=== PATIENT | female | born 1970 | race Caucasian/White ===

== ENCOUNTER 2023-02-15 16:10 | Emergency (ER) | payer MEDICARE, MEDICAID, SELFPAY ==
[2023-02-15] VITALS (14 sets, daily range): BP systolic 97–124; BP diastolic 50–85; PULSE 59–81; RESP 13–21; TEMP 36.4–36.6; O2SAT 91–98
--- NOTE | 2023-02-15 16:06 | ED.GENADUL_ITS ---
Discharge Plan Disposition Patient Disposition: Home Condition: Improving Discharge Details Clinical Impression: Accidental overdose, UTI (urinary tract infection), Pneumonia Primary Care Provider: Franchesca Summers ED Provider: Cristin Weston Home Meds and New Rx's Prescriptions: Continued citalopram 20 mg Tablet 20 mg PO DAILY dicyclomine 20 mg Tablet PO TID pregabalin [Lyrica] 150 mg Capsule 150 mg PO BID Discharge Instructions Instructions: Urinary Tract Infection in Women (ED), Pneumonia (ED) Additional Instructions: You were given multiple doses of the medication Narcan to reverse the effects of the methadone. Risks of opiate overdose include respiratory depression and d eath. Do not take medications that are not prescribed for you. Your chest x-ray showed evidence of a possible left-sided pneumonia. Your urine sample is also consistent with a urinary tract infection. Drink plenty of fluids and get plenty of rest. A prescription for the antibiotic Augmentin has been sent electronically to your pharmacy to take as directed until finished. Follow-up with your primary care doctor in 1 week. Return to the emergency department with any worsening or new concerning symptoms. Discharge Data Discharge Date/Time-TO BE ENTERED AT DEPARTURE: 02/15/23 21:09 Discharge Physician: Cristin Weston Medical Decision Making 1600 -- 52-year-old female with a history of peripheral neuropathy initially per EMS as an overdose and then reported as a CPR in progress. Upon EMS arrival, patient was noted to be somnolent with pinpoint pupils and was given a total of 6 mg of Narcan in which she became more alert and able to answer some questions. Vital signs reassuring per EMS. Oxygen saturation 96% on room air. Patient has eyes closed on arrival. Oxygen saturation 97% on 2 L. Vitals reassuring. She has a normal gag reflex and is verbally responsive to sternal rub. She appears uncomfortable when firmly pressing the substernal area and does admit to pain in this area since arrival to the ED. Suspect this is from likely compressions and sternal rub per EMS. Her lungs are clear throughout. Pupils are equal and reactive. She has no obvious focal deficits. She does report hip pain which is chronic and there is no obvious evidence of acute trauma. We will continue to monitor. Will refer for screening labs, urinalysis, UDS, CT head, chest x-ray and pelvis x-ray. 1744 --Labs and imaging reviewed. White blood cell count 16.5. Glucose 221 but with normal bicarb and anion gap. ABG notes a pH of 7.25, PCO2 50, PO2 72 while on 1 L nasal cannula. Urinalysis consistent with UTI. UDS positive for THC. CT head negative. Pelvis x-ray negative. Chest x-ray notes a questionable left lung base pneumonia. Patient reassessed and she is now opening her eyes, conversing more. She is requesting something to drink and was able to drink tanner macario. She is still complaining of the substernal chest pain which I suspect is from compressions and there is no evidence of trauma or rash on exam and she has significant tenderness to palpation of her sternum with even light palpation. She is a smoker and does endorse recent worsening of her chronic cough. She also admits to recent urinary frequency. There is an interaction of Levaquin with her citalopram for risk of QT prolongation so we will treat UTI and possible pneumonia with Augmentin. We will give a dose of Toradol for her chest pain. 1814 --patient noted to be more sleepy with respiratory rate around 8. She was able to be aroused verbally and speak and answer questions appropriately. She has pinpoint pupils. We will give an additional 1 mg of Narcan and continue to observe. BP 99/59, will give another 1 liter bolus. 2044 --patient was able to ambulate, eat and drink and feels much better would like to go home. She was given 1 dose of Augmentin here and a prescription sent electronically to her pharmacy. She was advised that she should not take medications, especially opiates, that are not prescribed to her. Advised to follow up with the primary care doctor for re-evaluation. Usual and customary return precautions given prior to discharge. Medical Records Medical records reviewed: Yes I reviewed the patient's medical records. Imaging Data Radiologic Study: Radiologist's impression: CT Head Without Contrast Exam date and time: 02/15/2023 5:01 PM Age: 52 years old Clinical indication: Injury or trauma; Fall; Blunt trauma (contusions or hematomas) TECHNIQUE: Imaging protocol: Computed tomography of the head without contrast. COMPARISON: No relevant prior studies available. FINDINGS: Brain: Normal. No hemorrhage. Unremarkable white matter. No mass effect. Cerebral ventricles: No ventriculomegaly. Paranasal sinuses: Opacities in the sphenoid sinuses may represent sinusitis Mastoid air cells: Visualized mastoid air cells are well aerated. Bones/joints: Unremarkable. No acute fracture. Soft tissues: Unremarkable. IMPRESSION: No acute intracranial hemorrhage XR Chest Exam date and time: 02/15/2023 5:08 PM Age: 52 years old Clinical indication: Other: Overdose TECHNIQUE: Imaging protocol: Radiologic exam of the chest. Views: 2 views. COMPARISON: No relevant prior studies available. FINDINGS: Lungs: Opacities in the left base may represent atelectasis or pneumonia.. Pleural spaces: Unremarkable. No pleural effusion. No pneumothorax. Heart/Mediastinum: Unremarkable. No cardiomegaly. Bones/joints: Unremarkable. IMPRESSION: Opacities in the left base may represent atelectasis or pneumonia. XR Pelvis Exam date and time: 02/15/2023 5:13 PM Age: 52 years old Clinical indication: Hip pain; Bilateral TECHNIQUE: Imaging protocol: Radiologic exam of the pelvis. Views: 1 or 2 view. COMPARISON: No relevant prior studies available. FINDINGS: Bones/joints: Unremarkable. No acute fracture. Soft tissues: Unremarkable. IMPRESSION: No acute findings. Lab Data Lab results reviewed: Yes I reviewed the patient's lab results. Labs: 02/15/23 16:41 Urine - Reflex from Ua Urine Culture - Pending Laboratory Tests Range/Units 02/15/23 02/15/23 02/15/23 16:26 16:41 16:41 WBC (4.4-10.8) 10^3/uL 16.85 H RBC (3.93-5.22) 10^6/uL 4.75 Hgb (11.2-15.7) g/dL 14.4 Hct (36.0-46.0) % 44.7 MCV (80-95) fL 94 MCH (27.0-33.0) pg 30.3 MCHC (32.0-36.0) % 32.2 RDW (11.7-14.6) % 13.2 Plt Count (130-400) 10^3/uL 238 MPV (8.0-11.0) fL 10.3 Immature Gran % 1.9 Neutrophils % 73.9 Lymphocytes % 18.8 Monocytes % 4.4 Eosinophils % 0.4 Basophils % 0.6 Nucleated RBC % (0.0-0.3) % 0.0 Absolute Neutrophils (1.2-6.7) 10^3/uL 12.45 H Absolute Lymphocytes (1.2-3.4) 10^3/uL 3.17 Absolute Monocytes (0.1-0.8) 10^3/uL 0.74 Absolute Eosinophils (0.0-0.7) 10^3/uL 0.07 Absolute Basophils (0.0-0.2) 10^3/uL 0.10 ABG Sample Site Left Radial ABG pH (7.35-7.45) 7.25 L ABG pCO2 (35-45) mmHg 50 H ABG pO2 (80-105) mmHg 72 L ABG HCO3 (22-26) mmol/L 22 ABG Total CO2 (23-27) mmol/L 20 L ABG O2 Saturation (95-98) % 94 L ABG Base Excess (-2-3) mmol/L -5 L Oxygen Liter Flow L 1 Sodium (136-145) mmol/L 138 Potassium (3.5-5.1) mmol/L 4.3 Chloride (98-107) mmol/L 104 Carbon Dioxide (21.0-32.0) mmol/L 26.8 Anion Gap (3-11) mmol/L 7.2 BUN (7-18) mg/dL 12 Creatinine (0.55-1.02) mg/dL 1.1 H Est GFR (CKD-EPI 2020) (mL/min/1.73m2) 59.71 Glucose (74-106) mg/dL 221 H Calcium (8.5-10.1) mg/dL 8.6 Magnesium (1.8-2.4) mg/dL 1.9 Total Bilirubin (0.2-1.0) mg/dL 0.3 AST (15-37) U/L 32 ALT (14-59) U/L 39 Alkaline Phosphatase (46-116) U/L 137 H Troponin I (<or=60) ng/L < 50 Total Protein (6.4-8.2) g/dL 7.7 Albumin (3.4-5.0) g/dL 3.5 Lipase (16-77) U/L 60 Urine Color (Yellow) Urine Clarity (Clear) Urine pH (5-8) Ur Specific [place] (1.005-1.025) Urine Protein (Negative) mg/dL Urine Ketones (Negative) mg/dL Urine Blood (Negative) Urine Nitrite (Negative) Urine Bilirubin (Negative) Urine Urobilinogen (Up to 0.2) mg/dL Ur Leukocyte Esterase (Negative) Urine RBC (0-2) HPF Urine WBC (0-5) HPF Ur Epithelial Cells (Negative) HPF Urine Crystals (Negative) HPF Urine Bacteria (Negative) HPF Urine Casts (Negative) LPF Urine Mucus (Negative) Urine Other (Negative) Ur Culture Indicated? Urine Glucose (Negative) mg/dL Urine Opiates Screen (Negative) Ur Barbiturates Screen (Negative) Ur Tricyclics Screen (Negative) Ur Amphetamines Screen (Negative) U Benzodiazepines Scrn (Negative) Urine Cocaine Screen (Negative) Ur THC Screen (Negative) Range/Units 02/15/23 02/15/23 16:41 16:41 WBC (4.4-10.8) 10^3/uL RBC (3.93-5.22) 10^6/uL Hgb (11.2-15.7) g/dL Hct (36.0-46.0) % MCV (80-95) fL MCH (27.0-33.0) pg MCHC (32.0-36.0) % RDW (11.7-14.6) % Plt Count (130-400) 10^3/uL MPV (8.0-11.0) fL Immature Gran % Neutrophils % Lymphocytes % Monocytes % Eosinophils % Basophils % Nucleated RBC % (0.0-0.3) % Absolute Neutrophils (1.2-6.7) 10^3/uL Absolute Lymphocytes (1.2-3.4) 10^3/uL Absolute Monocytes (0.1-0.8) 10^3/uL Absolute Eosinophils (0.0-0.7) 10^3/uL Absolute Basophils (0.0-0.2) 10^3/uL ABG Sample Site ABG pH (7.35-7.45) ABG pCO2 (35-45) mmHg ABG pO2 (80-105) mmHg ABG HCO3 (22-26) mmol/L ABG Total CO2 (23-27) mmol/L ABG O2 Saturation (95-98) % ABG Base Excess (-2-3) mmol/L Oxygen Liter Flow L Sodium (136-145) mmol/L Potassium (3.5-5.1) mmol/L Chloride (98-107) mmol/L Carbon Dioxide (21.0-32.0) mmol/L Anion Gap (3-11) mmol/L BUN (7-18) mg/dL Creatinine (0.55-1.02) mg/dL Est GFR (CKD-EPI 2020) (mL/min/1.73m2) Glucose (74-106) mg/dL Calcium (8.5-10.1) mg/dL Magnesium (1.8-2.4) mg/dL Total Bilirubin (0.2-1.0) mg/dL AST (15-37) U/L ALT (14-59) U/L Alkaline Phosphatase (46-116) U/L Troponin I (<or=60) ng/L Total Protein (6.4-8.2) g/dL Albumin (3.4-5.0) g/dL Lipase (16-77) U/L Urine Color (Yellow) Yellow Urine Clarity (Clear) Sl Cloudy Urine pH (5-8) 5.5 Ur Specific [place] (1.005-1.025) >= 1.030 H Urine Protein (Negative) mg/dL 100 H Urine Ketones (Negative) mg/dL Negative Urine Blood (Negative) Trace-intact H Urine Nitrite (Negative) Positive H Urine Bilirubin (Negative) Negative Urine Urobilinogen (Up to 0.2) mg/dL 0.2 Ur Leukocyte Esterase (Negative) Trace H Urine RBC (0-2) HPF 0-2 Urine WBC (0-5) HPF 20-50 H Ur Epithelial Cells (Negative) HPF Few Urine Crystals (Negative) HPF Negative Urine Bacteria (Negative) HPF Many Urine Casts (Negative) LPF 3-5 Hyaline Urine Mucus (Negative) Negative Urine Other (Negative) Rare Transitional Ur Culture Indicated? Yes Urine Glucose (Negative) mg/dL Negative Urine Opiates Screen (Negative) Negative Ur Barbiturates Screen (Negative) Negative Ur Tricyclics Screen (Negative) Negative Ur Amphetamines Screen (Negative) Negative U Benzodiazepines Scrn (Negative) Negative Urine Cocaine Screen (Negative) Negative Ur THC Screen (Negative) Positive A ECG Data Attestation: I personally reviewed and interpreted this ECG (s) as follows: Interpretation: Rate of 64, sinus, normal axis, artifact obscuring baseline, normal PA interval, somewhat prolonged QTc at 495. No acute ischemic findings. HPI General Mode of arrival: EMS . Date/Time Provider Initiated Documentation: 02/15/23 16:25 . Limitations to Documentation: no limitations . Information obtained by: patient and EMS . HPI Narrative: Patient is a 52-year-old female with a history of chronic abdominal pain, peripheral neuropathy, tobacco dependence presents from home initially as an overdose and reported CPR in progress. EMS reports that they were called to the scene of a patient who had sustained an overdose after taking someone else's methadone. They called back shortly after reporting that CPR was in progress. They state that boyfriend noted that patient had stopped breathing and he had done compressions for 20 minutes. Upon their arrival, patient was noted to be somnolent and was given a total of 6 mg Narcan with 2 mg intranasal and 4 mg IV. They state that patient initially was noted to have pinpoint pupils which then became dilated and she became more alert after Narcan. Patient arrives to the ED able to answer questions but drowsy. Patient states she had taken one of her friends methadone for pain . She is now reporting substernal chest pain on arrival to the ED. She denies any falls, difficulty breathing, new abdominal pain or new extremity pain or injury. She states she smokes marijuana but denies any other drug use today. She denies any recent alcohol use. Related Data Home Medications Medication Instructions Recorded Confirmed citalopram 20 mg tablet 20 mg PO DAILY 02/15/23 02/15/23 dicyclomine 20 mg tablet mg PO TID 02/15/23 pregabalin 150 mg capsule (Lyrica) 150 mg PO BID 02/15/23 02/15/23 Allergies Allergy/AdvReac Type Severity Reaction Status Date / Time No Known Allergies Allergy Unverified 02/15/23 16:25 General Stated Complaint: OD/Poison Review of Systems All systems reviewed & are unremarkable except as noted in HPI and below Constitutional Constitutional: Reports as per HPI, Denies chills and Denies fever(s) Eyes Eyes: Denies blurry vision ENT Ears, Nose, Mouth, and Throat: Denies dizziness, Denies sore throat and Denies throat swelling Cardiovascular Cardiovascular: Reports chest pain (started after she got to the hospital) and Denies dyspnea Respiratory Respiratory: Denies cough and Denies dyspnea Gastrointestinal Gastrointestinal: Denies abdominal pain, Denies diarrhea and Denies vomiting Genitourinary Genitourinary: Denies hematuria and Denies dysuria Musculoskeletal Musculoskeletal: Denies back pain and Denies numbness Integumentary/Breasts Skin/Breast: Denies lesions and Denies rash Neurologic Neurologic: Denies dizziness, Denies localized weakness and Denies numbness Allergic/Immunologic Allergic/Immunologic: Denies throat swelling PFSH All Active Problems (Updated 02/15/23 @ 21:00 by Cristin Weston DO) Accidental overdose (Acute) UTI (urinary tract infection) (Acute) Pneumonia (Acute) Medical History (Updated 02/15/23 @ 21:00 by Cristin Weston DO) Chronic abdominal pain Peripheral neuropathy Post-menopausal Surgical History (Updated 02/15/23 @ 16:39 by Cristin Weston DO) H/O section H/O total cystectomy Left elbow History of appendectomy Social History Smoking/Tobacco Use Status: Current every day Tobacco Type: cigarettes Smoking risk assessment performed?: Yes Alcohol Intake: never Drug use: Daily Substance use type: marijuana Do you feel safe at home: Yes Do you feel safe in your relationship?: Yes Exam Const General: no acute distress and other (drowsy but arousable to sternal rub) HENMT Head: normal to inspection Ears: hearing grossly normal bilaterally Face and sinus: normal facial exam Throat: other (normal gag reflex) Eyes General: appearance normal, both eyes and all related structures Pupils: PERRL Neck Neck: normal visual inspection and No submandibular swelling Chest Chest: normal inspection of the chest and no tenderness Resp Effort & Inspection: normal respiratory effort Auscultation: clear to auscultation bilaterally Cardio Rate: regular rate Rhythm: regular rhythm GI Inspection: normal to inspection Palpation: soft, not firm, not rigid and nontender Auscultation: hypoactive bowel sounds Back/Spine/Pelvis Thoracic/Lumbar Spine: thoracic and lumbar spine normal to inspection Skin General skin exam: no rashes or lesions noted Neuro General: moves all extremities, no focal motor deficits and other (drowsy but arousable to sternal rub) Extrem General: normal to inspection and no edema Psych Appearance: grossly normal
--- NOTE | 2023-02-15 16:15 | DI.RAD_ITS ---
Exam(s) XR PELVIS AP EXAM: XR PELVIS AP CLINICAL HISTORY: b/l hip pain, r/o fx. TECHNIQUE: 2D digital imaging was performed.One images were obtained. COMPARISON: No exams were available for comparison FINDINGS: BONES: No acute fracture is present. No bony destructive lesion is seen. JOINTS: No dislocation present. No joint space narrowing is present. SOFT TISSUE: Normal. IMPRESSION: Unremarkable radiographs of the pelvis. DATA REPOSITORY: RADIATION DOSE DELIVERED:
--- NOTE | 2023-02-15 16:15 | DI.CT_ITS ---
Exam(s) CT HEAD WO EXAM: CT HEAD WO CLINICAL HISTORY: overdose, h/o confusion, r/o cva. TECHNIQUE: Imaging Protocol: Axial computed tomography images with coronal and sagittal reformatted images were created and reviewed COMPARISON: No exams were available for comparison FINDINGS: Ventricles and Extra axial spaces: Normal in size and morphology for the patient's age. Hemorrhage: None. Cerebral parenchyma: Normal. Midline shift: None. Brainstem/Cerebellum: Normal. Calvarium: Normal. Visualized Paranasal sinuses/Mastoids: There is mild mucosal thickening in the sphenoid sinuses. The remaining visualized paranasal sinuses and mastoid air cells are clear. Soft Tissues: Unremarkable. IMPRESSION: No acute intracranial process. RADIATION DOSE DELIVERED: 729.71mGy.cm Total DLP DATA REPOSITORY: All CT scans at this facility are submitted to the National Radiology Data Registry (NRDR) Dose Index Registry (DIR) with the [employer] ([employer]). RADIATION OPTIMIZATION: All CT scans at this facility use at least one of these dose optimization te chniques: automated exposure control; mA and/or kV adjustment per patient size (includes targeted exa ms where dose is matched to clinical indication); or iterative reconstruction.
--- NOTE | 2023-02-15 16:26 | DI.RAD_ITS ---
Exam(s) XR CHEST 2V PA LATERAL EXAM: XR CHEST 2V PA LATERAL CLINICAL HISTORY: overdose, r/o acute disease TECHNIQUE: 2D digital imaging was performed of the chest. Two images were obtained. PA and lateral views were obtained. COMPARISON: No exams were available for comparison FINDINGS: MEDIASTINUM: Normal. HEART: Normal. PULMONARY VASCULATURE: Normal. LUNGS: Linear infiltrates in the left lung base. PLEURAL SPACE: No pleural effusion or pneumothorax. BONE:Within normal limits for the patient's age. Old healed left rib fractures. OTHER FINDINGS:Normal. IMPRESSION: Linear opacities in the left lung base which may represent atelectasis or pneumonia. DATA REPOSITORY: RADIATION DOSE DELIVERED:
[2023-02-15] MEDS: Normal Saline 1,000 ML 1000 ML IV ×2 (16:30→18:27)
--- NOTE | 2023-02-15 16:30 | RT.EKG_ITS ---
APPROVED REPORT Exam: Resting ECG Reason for Exam: overdose Patient Location: E HR:64 bpm ECG Measurements Heart Rate 64 AXIS DC 167 P 80 QRSd 110 QRS 57 QT 478 T 57 QTc 495 Conclusion Sinus rhythm...normal P axis, V-rate 60- 99. Artifact. Sinus. Normal axis. No STEMI. I have reviewed and interpreted ECG and agree with software generated interpretation.
[2023-02-15 16:47] LABS: BE -5 mmol/L (-2-3); HCO3 22 mmol/L (22-26); pCO2 50 mmHg (35-45); pH 7.25 (7.35-7.45); pO2 72 mmHg (80-105); sO2 94 % (95-98); tCO2 20 mmol/L (23-27)
[2023-02-15 16:48] LABS: Abs Immature Grans 0.32 10^3/uL (0.0-0.06); Absolute Eosinophil Count 0.07 10^3/uL (0.0-0.7); Absolute Lymphocyte Count 3.17 10^3/uL (1.2-3.4); Absolute Monocyte Count 0.74 10^3/uL (0.1-0.8); Absolute Neutrophil Count 12.45 10^3/uL (1.2-6.7); Basophils % 0.6; Eosinophils % 0.4; HCT 44.7 % (36.0-46.0); HGB 14.4 g/dL (11.2-15.7); Immature Grans % 1.9; Lymphocytes % 18.8; MCH 30.3 pg (27.0-33.0); MCHC 32.2 % (32.0-36.0); MCV 94 fL (80-95); MPV 10.3 fL (8.0-11.0); Monocytes % 4.4; Neutrophils % 73.9; Platelet Count 238 10^3/uL (130-400); RBC 4.75 10^6/uL (3.93-5.22); RDW 13.2 % (11.7-14.6); RDW-SD 46.2 fL; WBC 16.85 10^3/uL (4.4-10.8)
[2023-02-15 16:49] LABS: FIO2L 1 L; Site Left Radial
[2023-02-15 16:59] LABS: Bilirubin Negative (Negative); Blood Trace-intact (Negative); Clarity Sl Cloudy (Clear); Glucose Negative (Negative); Ketones Negative (Negative); Leukocyte Esterase Trace (Negative); Nitrite Positive (Negative); Specific Gravity >= 1.030 (1.005-1.025); Urobilinogen 0.2 mg/dL (Up to 0.2); pH 5.5 (5-8)
[2023-02-15 17:08] LABS: Epithelial Cells Few HPF (Negative); RBC 0-2 HPF (0-2); WBC 20-50 HPF (0-5)
[2023-02-15 17:09] LABS: Bacteria Many HPF (Negative); C & S Indicated? Yes; Casts 3-5 Hyaline LPF (Negative); Crystals Negative HPF (Negative); Mucus Negative (Negative); Other Cells Rare Transitional (Negative)
[2023-02-15 17:16] LABS: *AMPHETAMINES SCREEN URINE Negative (Negative); *BENZODIAZEPINES SCREEN URINE Negative (Negative); Cannabinoids THC Positive (Negative); Cocaine Screen,Urine Negative (Negative)
[2023-02-15 17:17] LABS: *BARBITURATES SCREEN URINE Negative (Negative); OPIATES URINE SCREEN Negative (Negative); Tricyclic Antidepressants Negative (Negative)
[2023-02-15 17:28] LABS: ALT 39 U/L (14-59); AST 32 U/L (15-37); Albumin 3.5 g/dL (3.4-5.0); Alkaline Phosphatase 137 U/L (46-116); Anion Gap 7.2 mmol/L (3-11); BUN 12 mg/dL (7-18); CO2 26.8 mmol/L (21.0-32.0); CREATININE 1.1 mg/dL (0.55-1.02); Chloride 104 mmol/L (98-107); Estimated GFR 59.71 (mL/min/1.73m2); Glucose 221 mg/dL (74-106); Lipase 60 U/L (16-77); Magnesium 1.9 mg/dL (1.8-2.4); Potassium 4.3 mmol/L (3.5-5.1); Sodium 138 mmol/L (136-145); Total Protein 7.7 g/dL (6.4-8.2); Troponin I < 50 ng/L (<or=60)
--- NOTE | 2023-02-15 17:39 | DI.VRAD_ITS ---
PROCEDURE INFORMATION: Exam: XR Chest Exam date and time: 02/15/2023 5:08 PM Age: 52 years old Clinical indication: Other: Overdose TECHNIQUE: Imaging protocol: Radiologic exam of the chest. Views: 2 views. COMPARISON: No relevant prior studies available. FINDINGS: Lungs: Opacities in the left base may represent atelectasis or pneumonia.. Pleural spaces: Unremarkable. No pleural effusion. No pneumothorax. Heart/Mediastinum: Unremarkable. No cardiomegaly. Bones/joints: Unremarkable. IMPRESSION: Opacities in the left base may represent atelectasis or pneumonia.. Dictated and Authenticated by: Hakan Nova MD. Ordering:CEM Amaral MD
--- NOTE | 2023-02-15 17:39 | DI.VRAD_ITS ---
PROCEDURE INFORMATION: Exam: XR Pelvis Exam date and time: 02/15/2023 5:13 PM Age: 52 years old Clinical indication: Hip pain; Bilateral TECHNIQUE: Imaging protocol: Radiologic exam of the pelvis. Views: 1 or 2 view. COMPARISON: No relevant prior studies available. FINDINGS: Bones/joints: Unremarkable. No acute fracture. Soft tissues: Unremarkable. IMPRESSION: No acute findings. Dictated and Authenticated by: Hakan Nova MD. Ordering:CEM Amaral MD
--- NOTE | 2023-02-15 17:39 | DI.VRAD_ITS ---
PROCEDURE INFORMATION: Exam: CT Head Without Contrast Exam date and time: 02/15/2023 5:01 PM Age: 52 years old Clinical indication: Injury or trauma; Fall; Blunt trauma (contusions or hematomas) TECHNIQUE: Imaging protocol: Computed tomography of the head without contrast. COMPARISON: No relevant prior studies available. FINDINGS: Brain: Normal. No hemorrhage. Unremarkable white matter. No mass effect. Cerebral ventricles: No ventriculomegaly. Paranasal sinuses: Opacities in the sphenoid sinuses may represent sinusitis Mastoid air cells: Visualized mastoid air cells are well aerated. Bones/joints: Unremarkable. No acute fracture. Soft tissues: Unremarkable. IMPRESSION: No acute intracranial hemorrhage Dictated and Authenticated by: Hakan Nova MD. Ordering:CEM Amaral MD
[2023-02-15 17:49] LABS: Bilirubin, Total 0.3 mg/dL (0.2-1.0); Calcium 8.6 mg/dL (8.5-10.1)
[2023-02-15] MEDS: Amoxicillin 875/Clav. 125 TAB PO (18:05)
[2023-02-15] MEDS: Ketorolac 30 MG/ML VIAL IVP (18:05)
--- NOTE | 2023-02-15 19:42 | NUR.NOTE ---
Nursing Note: Sat pt up in bed and gave patient tiffany crackers and gingmoustapha
--- NOTE | 2023-02-15 20:17 | NUR.NOTE ---
Nursing Note: Pt ambulated with walker to ED bathroom and back with no issues. Vital signs stable. aware.
== END 2023-02-15 21:09 | disposition home or self-care (01) ==
PROVIDERS: Emergency Provider Physician Assistant; PCP Family Medicine
DX: T40.3X1A Poisoning by methadone, accidental (unintentional), initial encounter (principal); N39.0 Urinary tract infection, site not specified; J18.9 Pneumonia, unspecified organism; F17.210 Nicotine dependence, cigarettes, uncomplicated
CPT/HCPCS: 36415; 80053; 80307; 82805; 83690; 87077; 93005; 96361; 96374; 96375; 99285; 36600; 70450; 71046; 72170; 81003; 81015; 83735; 84484; 85025; 87086; 87186; 93010; J1885; J2310